=== PATIENT | female | born 1970 | race Caucasian/White ===

== ENCOUNTER 2023-04-10 18:14 | Emergency (ER) | payer OTHER ==
[~2023-04-10] VITALS: Ht 167.6 cm; Wt 81.6 kg
[2023-04-10 18:14] VITALS: BP_SYST 178; PULSE 118; RESP 20; TEMP 98.2; O2SAT 96
[2023-04-10] MEDS ORDERED: iohexoL 350 mgI/mL, 100 ML INFUS..BTL IV ONE (18:33)
[2023-04-10 18:57] LABS: BASOPHILS # (AUTO) 0.1 K/uL (0.0-0.2); BASOPHILS % (AUTO) 0.5 % (0.0-2.0); EOSINOPHILS # (AUTO) 0.1 K/uL (0.0-0.4); HEMATOCRIT 33.6 % (36-48); HEMOGLOBIN 10.7 g/dL (12.0-16.0); LYMPHOCYTES # (AUTO) 2.4 K/uL (1.0-5.5); LYMPHOCYTES % (AUTO) 23.9 % (20.5-51.5); MEAN CORPUSCULAR HEMOGLOBIN 25 pg (27-31); MEAN CORPUSCULAR HGB CONC 32 % (32-36); MEAN CORPUSCULAR VOLUME 79 fL (79.0-98.0); MONOCYTES # (AUTO) 0.7 K/uL (0.0-1.0); MONOCYTES % (AUTO) 6.8 % (1.7-9.3); NEUTROPHILS # (AUTO) 6.9 K/uL (1.8-7.7); NEUTROPHILS % (AUTO) 67.8 % (40.0-70.0); PLATELET COUNT (AUTO) 338 K/uL (130-430); RED BLOOD CELL COUNT(AUTO) 4.25 MIL/uL (4.2-6.2); WHITE BLOOD COUNT (AUTO) 10.1 K/uL (4.8-10.8)
[2023-04-10] MEDS ORDERED: MANNITOL 25% 12.5GM/50 ML VIAL IVP ONE ×2 (19:15)
[2023-04-10] MEDS ORDERED: ONDANSETRON HCL 4 MG/2 ML VIAL IVP ONE ×2 (19:15)
[2023-04-10] MEDS ORDERED: levETIRAcetam 1,000 MG IV BAG 100 ML IV ONE (19:15)
[2023-04-10] MEDS ORDERED: LABETALOL HCL 20 MG/4 ML CARTRIDGE IVP ONE ×2 (19:26→19:30)
[2023-04-10] MEDS ORDERED: NITROPRUSSIDE SODIUM 50 MG in D5W 248 ML IV ONE (19:45)
[2023-04-10 19:51] LABS: ALANINE AMINOTRANSFERASE 24 U/L (12-78); ALBUMIN 4.1 g/dL (3.4-4.8); ANION GAP 11 (5-15); ASPARTATE AMINOTRANSFERASE 23 U/L (10-37); CALCIUM 9.2 mg/dL (8.4-11.0); CHLORIDE 102 mmol/L (98-107); CREATININE 0.75 mg/dL (0.55-1.30); GFR AFRICAN AMERICAN 105 mL/min (>90); TOTAL BILIRUBIN 0.2 mg/dL (0.0-1.0); UREA NITROGEN, BLOOD 23 mg/dL (8-21)
[2023-04-10] MEDS ORDERED: NITROPRUSSIDE SODIUM 25 MG/ML VIAL(NIPRIDE) IV ONE (19:53)
[2023-04-10 19:58] LABS: INR 0.9 (0.8-1.2); PROTHROMBIN TIME 9.8 SECS (9.5-12.5)
[2023-04-10 20:14] LABS: GLUCOSE 150 mg/dL (74-106)
[2023-04-10 20:46] LABS: CHOLESTEROL 275 mg/dL (<200); HDL CHOLESTEROL 55 mg/dL (>55); TRIGLYCERIDES 251 mg/dL (30-150)
[2023-04-10 21:00] VITALS: BP_SYST 198; PULSE 98; RESP 17; TEMP 98.7; O2SAT 97
== END 2023-04-10 21:00 | disposition short-term general hospital (02) ==
LOC: SED 18:14
DX: I61.9 Nontraumatic intracerebral hemorrhage, unspecified (principal); R41.82 Altered mental status, unspecified; I16.0 Hypertensive urgency; I10 Essential (primary) hypertension; Z79.899 Other long term (current) drug therapy
CPT/HCPCS: 99291; 70496; 96365; 96375; 71045; 80061; 80053; 83037; 85025; 85610; 85730; 86886; 86900; 86901; 84484; 36415; 93005; 70498; 99292; 70450; 76376; Q9967; J1953; J2150; J3490; J2405